=== PATIENT | male | born 1970 | race Hispanic/Latino ===

== ENCOUNTER → 2018-09-02 | Day surgery (SDC) | payer OTHER ==
[2018-08-30 10:05] LABS: BASOPHILS % 0.5 % (0.0-1.0); EOSINOPHILS # (AUTO) 0.2 (0.0-0.4); HEMOGLOBIN 14.4 g/dL (14.0-18.0); LYMPHOCYTES # (AUTO) 2.2 (1.0-3.2); LYMPHOCYTES % 27.4 % (18.0-39.1); MEAN CORPUSCULAR HEMOGLOBIN 28.5 pg (28-32); MEAN CORPUSCULAR HGB CONC 34.3 g/dL (31-35); MEAN CORPUSCULAR VOLUME 83.2 fL (81-99); MONOCYTES # (AUTO) 0.6 (0.2-0.8); MONOCYTES % 7.6 % (4.4-11.3); NEUTROPHILS % 61.1 % (38.7-80.0); PLATELET COUNT 282 x10e3/uL (140-360); RED BLOOD COUNT 5.05 x10e6/uL (4.3-5.7); RED CELL DISTRIBUTION WIDTH 13.3 % (11.7-14.4)
[2018-08-30 10:27] LABS: ANION GAP 11.9 mmol/L (8-16); BLOOD UREA NITROGEN 17 mg/dL (7-26); BUN/CREATININE RATIO 19 (6-25); CARBON DIOXIDE 26 mmol/L (22-29); CHLORIDE 104 mmol/L (98-107); CREATININE, SERUM 0.88 mg/dL (0.72-1.25); EST GLOMERULAR FILTRATION RATE > 60 ML/MIN (60-); GLUCOSE 93 mg/dL (74-118); POTASSIUM 3.9 mmol/L (3.5-5.1); SODIUM 138 mmol/L (136-145)
[~2018-09-02] MED LIST: BUPIVACAINE 0.25% 30ML SDV INJ ONE; CEFTRIAXONE SOD 1 GM/NS 50 ML 50 ML IV ONE; DEXAMETHASONE SOD PHOS INJ 4 MG/ML VIAL ONE; DEXILANT PO; FENTANYL CITRATE/PF 100MCG/2 ML INJ ONE; KETOROLAC TROMETHAMINE 30 MG/ML VIAL ONE; LIDOCAINE HCL 2% LOCAL INJ 5 ML SDV VIAL INJ ONE; MIDAZOLAM HCL 2 MG/2 ML VIAL ONE; ONDANSETRON HCL INJ 2 MG/ML VIAL ONE; PROPOFOL IV EMULSION 10 MG/ML 20 ML VIAL ONE; SEVOFLURANE INHAL SOLN 250 ML PEN BTL ONE
[2018-09-02 14:30] VITALS: BP 119/83
--- NOTE | 2018-09-19 14:48 | Operative Report ---
DATE OF PROCEDURE: September 02, 2018 PREOPERATIVE DIAGNOSIS: Recurrent balanitis. POSTOPERATIVE DIAGNOSIS: Recurrent balanitis. OPERATIVE PROCEDURE PERFORMED: Circumcision. ANESTHESIA: General anesthesia. ESTIMATED BLOOD LOSS: Minimal. INDICATIONS: Mr. Malcom Knight is a 48-year-old gentleman with a history of recurrent balanitis, which has failed conservative management. He now presents for definitive surgical management of this problem. PROCEDURE IN DETAIL: The patient was brought in the operating room, placed in supine position. After administration of general anesthesia, was prepped and draped in usual sterile fashion. With the preputial skin in its normal anatomical position, a circumferential incision was made at the level of the fajardo. The foreskin was then retracted with minimal difficulty and a 2nd parallel circumferential incision was made approximately 5 mm proximal to fajardo. The intervening tissue between the 2 incisions was removed and hemostasis obtained using electrocautery device. Once adequate hemostasis was secured, the skin edges were reapproximated and closed using interrupted chromic sutures. The wound was then cleaned and dried and covered with Mastisol and circumferential Tegaderm dressing. A penile block was performed using 0.25% plan plain Marcaine. Anesthesia was reversed and patient was transferred to a bed and taken to the postanesthesia care unit in good condition. Of note, the needle and instrument counts were correct at the conclusion of the case. Job#: [id number] VETO
== END | disposition home or self-care (01) ==
LOC: OR 08:22
PROVIDERS: ATTEND Urology
DX: N48.1 Balanitis (principal); N47.7 Other inflammatory diseases of prepuce; K21.9 Gastro-esophageal reflux disease without esophagitis; Z01.810 Encounter for preprocedural cardiovascular examination; Z01.812 Encounter for preprocedural laboratory examination
CPT/HCPCS: 36415; 54161; 80048; 85025; 88304; 93005; J0696; J1100; J1885; J2001; J2250; J2405; J2704